=== PATIENT | female | born 1945 | race Caucasian/White ===

== ENCOUNTER → 2016-12-03 | Outpatient (CLI) | payer MEDICARE ==
--- NOTE | 2016-12-03 14:46 | MAM ---
EXAM DESCRIPTION: MAMMO BREAST SCREENING BILATERAL CAD, images were reviewed with CAD technology, R2 computer-aided detection. CLINICAL HISTORY: [facility]. COMPARISON: 2012. FINDINGS: Routine views are obtained. Scattered glandular pattern with stable distribution. No dominant mass, architectural distortion or clustered microcalcification.. IMPRESSION: Benign exam. BIRAD CATEGORY: 2 BENIGN RECOMMENDATIONS: FOLLOW-UP: Routine screening mammogram in one year. According to the [employer], yearly mammograms are recommended starting at age 40 and continuing as long as a woman is in good health. Any breast change noted on a breast self-exam should be reported promptly to the patient's healthcare provider. Breast MRI is recommended for women with an approximately 20-25% or greater lifetime risk of breast cancer, including women with a strong family history of breast or ovarian cancer and women who have been treated for Hodgkin's disease. Electronically signed by: Tamara Zapata 12/03/2016 14:44
== END ==
LOC: MAMMO 13:04
PROVIDERS: ATTEND Emergency Medicine
DX: Z12.31 Encounter for screening mammogram for malignant neoplasm of breast (principal)

== ENCOUNTER → 2018-01-20 | Outpatient (CLI) | payer MEDICARE ==
--- NOTE | 2018-01-22 12:49 | MAM ---
EXAM DESCRIPTION: 3D Screening BILATERAL : Digital Mammography. CLINICAL HISTORY: 72 years Female SCREENING . No complaints. Remote family history breast cancer. Postmenopausal. No HRT. COMPARISON: 2-D digital screening bilateral study 12/03/2016. Report from prior examination also reviewed. TECHNIQUE: Bilateral CC and MLO projection full-field images, 3-D tomosynthesis digital mammographic technique. Also bilateral synthesized CC/ MLO full-field images. CAD not utilized. FINDINGS: The breast parenchymal density pattern is: Heterogeneously dense breast tissue, which may obscure small masses. No skin thickening or nipple retraction bilateral solitary microcalcifications. Bilateral vascular calcifications. No focal, stellate mass or density, focal asymmetry , and no suspicious microcalcifications bilaterally. Stable mammograms compared to prior study, taking into account differences in mammographic technique IMPRESSION: BI-RADS CATEGORY: 2 - BENIGN FINDINGS. FOLLOW UP: Routine digital bilateral screening, one year interval from December 2017. Written communication explaining the IMPRESSION and follow-up, will be mailed to the patient and referring health care provider. According to the [employer], yearly mammograms are recommended starting at age 40 and continuing as long as a woman is in good health. Any breast change noted on a breast self-exam should be reported promptly to the patient's healthcare provider. Breast MRI is recommended for women with an approximately 20-25% or greater lifetime risk of breast cancer, including women with a strong family history of breast or ovarian cancer and women who have been treated for Hodgkin's disease. A negative mammographic report should not delay tissue diagnosis in patients with significant clinical history or physical findings. Extremely dense breast tissue limits the sensitivity of digital mammography. Electronically signed by: Domenico Weinstein MD 01/22/2018 12:46 PM CDT
== END ==
LOC: MAMMO 13:00
PROVIDERS: ATTEND Emergency Medicine
DX: Z12.31 Encounter for screening mammogram for malignant neoplasm of breast (principal)

== ENCOUNTER → 2019-05-06 | Outpatient (CLI) | payer MEDICARE ==
--- NOTE | 2019-05-06 16:04 | CT ---
CT ABDOMEN PELVIS WITH IV CONTRAST HISTORY: 73 years Female RIGHT LOWER QUADRANT PAIN COMPARISON: No recent comparison. TECHNIQUE: Helical tomographic images of the abdomen and pelvis were obtained after the administration of intravenous contrast. Coronal and sagittal reformatted images were also provided. This exam was performed according to our departmental dose-optimization program, which includes automated exposure control, adjustment of the mA and/or kV according to patient size and/or use of iterative reconstruction technique. FINDINGS: Visualized lung bases are unremarkable. No focal hepatic lesion. No biliary dilatation. The gallbladder is unremarkable. The portal vein is patent. The spleen, pancreas and adrenal glands are unremarkable. Symmetric renal parenchymal enhancement. No hydronephrosis. No urolithiasis. The bladder is decompressed. Heterogeneous uterus. Fluid within the endometrial canal measuring 0.4 cm in thickness. Left adnexal cystic lesion measuring 2.8 cm, axial 62. (This is shown interval growth when compared to April 06, 2008, at which time it measured 1.5 cm.) Follow-up for Incidental Adnexal Cystic Mass on CT or MRI ( 1 cm)* *Based on the 2013 White Paper of the [employer] Incidental Findings Committee on Adnexal Findings Probable benign cyst, late post-menopausal (> 55 yo) Late post-menopausal with benign appearing cyst with one or more features (angulated margins; not round/oval; portion of cyst is poorly imaged; image with reduced [id number] ratio): <= 1 cm - Benign; no follow-up recommended Scattered colonic diverticula. Normal appendix. No evidence of bowel obstruction. Very subtle fat stranding and fluid in the pelvis surrounding the sigmoid colon. No drainable fluid collection. No free air. No adenopathy. No focal fluid collection. No free air. Mild atherosclerotic disease. Normal caliber abdominal aorta. Degenerative changes without acute or suspicious osseous abnormality. T12 vertebral body hemangioma. IMPRESSION: 1. Very minimal findings which suggest acute uncomplicated sigmoid diverticulitis. 2. Left adnexal cyst measuring 2.8 cm. Ultrasound should be performed promptly for further characterization. 3. Abnormal fluid in the endometrial canal in a postmenopausal female. Recommend attention on follow-up ultrasound. Electronically signed by: Finn Kong MD 05/06/2019 4:02 PM CDT
== END ==
LOC: CT 11:30
PROVIDERS: ATTEND Nurse Practitioner Family
DX: R18.8 Other ascites (principal); N83.8 Other noninflammatory disorders of ovary, fallopian tube and broad ligament

== ENCOUNTER → 2019-05-10 | Outpatient (CLI) | payer MEDICARE ==
--- NOTE | 2019-05-11 14:58 | US ---
EXAM DESCRIPTION: Pelvic,Non-OB (accession [id number]), Ultrasound. Pelvis Transvaginal (accession [id number]): Ultrasound. CLINICAL HISTORY: 73 years Female Complex cyst of uterine adnexa COMPARISON: CT scan of the abdomen and pelvis with IV contrast 05/06/2019. TECHNIQUE: Transcutaneous scanning through the urine filled bladder. Endovaginal scanning. Garcia-scale and Doppler modes. . Technically difficult study due to patient body habitus and intestinal gas. FINDINGS: Uterus 4.8 x 3.3 x 2.9 cm. Endometrial thickness 3.4 mm. Fluid in the endometrial cavity. The myometrium appears heterogeneous. Hypoechoic masses with central echogenicity and acoustic shadowing abutting the endometrium. These are measuring 5.1 mm and 5.8 mm. The uterus position is difficult to determine. Appeared retroverted posterior to the sigmoid colon. On the CT scan. Cervix 5.5 mm cyst.. Cul-de-sac contains no fluid. Right ovary not seen. Intestinal Gas in the right adnexa Left ovary 3.5 x 3.4 x 3.3 cm. Normal color Doppler vascularity. 2.4 x 2.4 x 2.2 cm simple cyst. Nonvascular. No wall thickening. Posterior acoustic enhancement. No adnexal mass or free fluid. IMPRESSION: 1. 2.4 cm simple left ovarian cyst. No follow-up imaging is recommended. Right ovary was not seen. No adnexal mass or free fluid. Reference: Radiology 2009;256(3):943-54 2. Small uterus. No endometrial thickening but fluid in the endometrial cavity. Hypoechoic masses with central calcification abutting the endometrium, less than 1 cm diameter, most likely fibroids. Nabothian cyst in the cervix. Gynecological consult is recommended. Electronically signed by: Domenico Weinstein MD 05/11/2019 2:55 PM CDT
== END ==
LOC: US 13:45
PROVIDERS: ATTEND Nurse Practitioner Family
DX: N85.8 Other specified noninflammatory disorders of uterus (principal); N83.202 Unspecified ovarian cyst, left side

== ENCOUNTER → 2019-06-16 | Outpatient (CLI) | payer MEDICARE ==
--- NOTE | 2019-06-17 10:46 | MAM ---
EXAM DESCRIPTION: 3D Screening BILATERAL : Digital Mammography. CLINICAL HISTORY: 73 years Female ANNUAL SCREENING . No complaints. No personal history of breast cancer. Remote family history of breast cancer. Childbirth. Postmenopausal. No HRT. Lifetime risk of developing breast cancer (Tyrer-Cuzick model)(%): 3.3. COMPARISON: Bilateral screening digital breast tomosynthesis 01/20/2018. TECHNIQUE: Bilateral CC and MLO projection full-field images, digital tomosynthesis mammographic technique. Bilateral digital 2-D full-field MLO images. CAD not available for tomosynthesis or 2-D images. FINDINGS: The breast parenchymal density pattern is Heterogeneously dense breast tissue, which may obscure small masses. No skin thickening or nipple retraction. No new focal, stellate mass or density, focal asymmetry , and no suspicious microcalcifications bilaterally. IMPRESSION: BI-RADS CATEGORY: 1 - NEGATIVE FOLLOW UP: Routine digital bilateral screening, one year interval from June 2019 Written communication explaining the findings and follow-up, will be mailed to the patient and referring health care provider. According to the [employer], yearly mammograms are recommended starting at age 40 and continuing as long as a woman is in good health. Any breast change noted on a breast self-exam should be reported promptly to the patient's healthcare provider. Breast MRI is recommended for women with an approximately 20-25% or greater lifetime risk of breast cancer, including women with a strong family history of breast or ovarian cancer and women who have been treated for Hodgkin's disease. A negative mammographic report should not delay tissue diagnosis in patients with significant clinical history or physical findings. Extremely dense breast tissue limits the sensitivity of digital mammography. Electronically signed by: Domenico Weinstein MD 06/17/2019 10:45 AM CDT
== END ==
LOC: MAMMO 10:45
PROVIDERS: ATTEND Nurse Practitioner Family
DX: Z12.31 Encounter for screening mammogram for malignant neoplasm of breast (principal)